=== PATIENT | male | born 1995 | race American Indian/Alaskan Native ===

== ENCOUNTER 2021-12-01 00:21 | Emergency (ER) | payer SELFPAY ==
[2021-12-01 02:21] VITALS: BP 112/74
--- NOTE | 2021-12-01 02:26 | Cat Scan Report ---
CT head without contrast INDICATION : Head injury from a fall, now with a headache and vomiting. TECHNIQUE: Axial imaging performed from the skull apex through the skull base without the use of con trast. All CT scans at this location are performed using CT dose reduction for ALARA by means of aut omated exposure control. COMPARISON: None FINDINGS: Parenchyma: No acute intracranial hemorrhage or parenchymal abnormality. Ventricles: Ventricles are normal in size and appear symmetric. Soft tissues: Soft tissues including the orbits appear normal. Bones: No acute osseous abnormality. Sinuses: Sinuses and mastoid air cells are clear. IMPRESSION: No acute abnormality. Signer Name: Sami Méndez MD Signed: 12/01/2021 2:22 AM Workstation Name: [id number]
--- NOTE | 2021-12-01 03:02 | Emergency Department Report ---
ED Head Trauma HPI - General Chief complaint: Head Injury Stated complaint: VOMITING FEVER DEMETRIUS Time Seen by Provider: 12/01/21 02:03 Source: patient Mode of arrival: Ambulatory Limitations: No Limitations - History of Present Illness Initial comments: 26-year-old [place] male presents emerged part with complaining of a trip and fall a couple days ago resulting in headache and dizziness. States he did have a few episodes of vomiting since that time as well but that continues today. Blurred vision off and on with general fatigue and weakness. States he is unsure if he is coming contact with the coronavirus but was worried about that as well and not sure if the headache was continued from the follow-up from him beginning to feel ill. Reports no hemoptysis no hematemesis hematochezia. No palpitations. No fever, chills, sweats. MD Complaint: head injury, head pain, fall Place: home Radiation: none Severity: mild Quality: dull Consistency: constant Provoking factors: none known Associated Symptoms: denies: denies other symptoms, confusion, tingling, neck pain - Related Data Previous Rx's Medication Instructions Recorded Last Taken Type Ketorolac [Toradol] 10 mg PO Q6H PRN #14 12/01/21 Unknown Rx Ondansetron [Zofran ODT TAB] 8 mg PO Q8HR #20 tab.rapdis 12/01/21 Unknown Rx Allergies/Adverse reactions: Allergies Allergy/AdvReac Type Severity Reaction Status Date / Time No Known Allergies Allergy Unverified 12/01/21 00:25 ED Review of Systems ROS: Stated complaint: VOMITING FEVER DEMETRIUS Other details as noted in HPI Comment: All other systems reviewed and negative ED Past Medical Hx - Past Medical History Previous Medical History?: No - Surgical History Past Surgical History?: No - Medications Home Medications: Home Medications Medication Instructions Recorded Confirmed Last Taken Type Ketorolac [Toradol] 10 mg PO Q6H PRN #14 12/01/21 Unknown Rx Ondansetron [Zofran ODT TAB] 8 mg PO Q8HR #20 tab.rapdis 12/01/21 Unknown Rx ED Physical Exam - General Limitations: No Limitations General appearance: alert, in no apparent distress - Head Head exam: Present: atraumatic, normocephalic - Eye Eye exam: Present: normal appearance - ENT ENT exam: Present: mucous membranes moist, normal external ear exam, other (Nasal congestion clear drainage) - Neck Neck exam: Present: normal inspection - Respiratory Respiratory exam: Present: normal lung sounds bilaterally. Absent: respiratory distress - Cardiovascular Cardiovascular Exam: Present: regular rate, normal rhythm. Absent: systolic m urmur, diastolic murmur, rubs, gallop - GI/Abdominal GI/Abdominal exam: Present: soft, normal bowel sounds - Rectal Rectal exam: Present: deferred - Extremities Exam Extremities exam: Present: normal inspection - Back Exam Back exam: Present: normal inspection - Neurological Exam Neurological exam: Present: alert, oriented X3, CN II-XII intact - Expanded Neurological Exam Expanded Patient oriented to: Present: person, place, time Speech: Present: fluid speech Cranial nerves: EOM's Intact: Normal, Gag Reflex: Normal, Nystagmus: Normal Cerebellar function: Finger to Nose: Normal Best Eye Response (Sony): (4) open spontaneously Best Motor Response (Sony): (6) obeys commands Best Verbal Response (Brilliant): (5) oriented Brilliant Total: 15 - Psychiatric Psychiatric exam: Present: normal affect, normal mood - Skin Skin exam: Present: warm, dry, intact, normal color. Absent: rash ED Course Vital Signs 12/01/21 00:24 Temperature 99.2 F Pulse Rate 102 H Respiratory 18 Rate Blood Pressure 112/74 O2 Sat by Pulse 97 Oximetry - Radiology Data Radiology results: report reviewed [facility] [address] [id number] Cat Scan Report Signed Patient: BRANDON BROWN MR#: [id number] : 1995 Acct:[id number] Age/Sex: 26 / M ADM Date: 12/01/21 Loc: ED Attending Dr: Ordering Physician: JUANJOSE LYONS MD Date of Service: 12/01/21 Procedure(s): CT head/brain wo con Accession Number(s): [id number] cc: JUANJOSE LYONS MD CT head without contrast INDICATION : Head injury from a fall, now with a headache and vomiting. TECHNIQUE: Axial imaging performed from the skull apex through the skull base without the use of contrast. All CT scans at this location are performed using CT dose reduction for ALARA by means of automated exposure control. COMPARISON: None FINDINGS: Parenchyma: No acute intracranial hemorrhage or parenchymal abnormality. Ventricles: Ventricles are normal in size and appear symmetric. Soft tissues: Soft tissues including the orbits appear normal. Bones: No acute osseous abnormality. Sinuses: Sinuses and mastoid air cells are clear. IMPRESSION: No acute abnormality. Signer Name: Sami Méndez MD Signed: 12/01/2021 2:22 AM Workstation Name: [id number] Transcribed By: DELIA Dictated By: Sami Méndez MD Electronically Authenticated By: Sami Méndez MD Signed Date/Time: 12/01/21221 DD/ 0 TD/TT: - Medical Decision Making 26-year-old F [place] male was fall with head trauma current Sony coma scale 15. D does not have any hematomas. No skull crepitance or stepoff. No Sheets sign. No raccoon eyes. No fluid from nose or ears. No nasal septal hematoma. No open wounds. No cervical spine tenderness. CT scan performed to evaluate for any intracranial injury or skull fracture. Patient is protecting airway and otherwise has an unremarkable secondary trauma survey. Given instructions regarding supportive care including pain meds as needed, return precautions, follow-up with primary physician. This patient presents to the emergency department with fever and lower respiratory symptoms concerning for viral syndrome including flu and COVID-19. Patient has suspicion and is for COVID-19 infection. Differential diagnosis includes other viral causes of lower respiratory symptoms, pneumonia, asthma, bronchitis. Patient is well-appearing with acceptable vitals, lacks comorbidities admission and a reassuring physical examination and is safe to be discharged home nasal swab for COVID testing is recommended. Provide strict return precautions and instructions on self isolation/quarantine and anticipatory guidance. Critical care attestation.: If time is entered above; I have spent that time in minutes in the direct care of this critically ill patient, excluding procedure time. ED Disposition Clinical Impression: Head injury due to trauma, Fall, Suspected 2019-nCoV infection Disposition: HOME / SELF CARE / HOMELESS Is pt being admited?: No Does the pt Need Aspirin: No Condition: Stable Instructions: How to Use Cold Therapy, [id number], Head Injury, Adult, Post- Concussion Syndrome, [id number], COVID-19: How to Protect Yourself and Others - CDC, COVID-19, COVID-19 Frequently Asked Questions Prescriptions: Ketorolac [Toradol] 10 mg PO Q6H PRN #14 PRN Reason: Pain Ondansetron [Zofran ODT TAB] 8 mg PO Q8HR #20 tab.ruth Referrals: PRIMARY CARE, [Primary Care Provider] - 3-5 Days [facility] [Provider Group] - 3-5 Days
== END 2021-12-01 03:34 | disposition home or self-care (01) ==
LOC: ED 00:21
DX: S09.90XA Unspecified injury of head, initial encounter (principal); Z20.822 Contact with and (suspected) exposure to COVID-19; W18.39XA Other fall on same level, initial encounter; Y93.89 Activity, other specified; Y92.89 Other specified places as the place of occurrence of the external cause; Y99.8 Other external cause status
CPT/HCPCS: 70450; 99283